=== PATIENT | male | born 1980 | race African-American/Black ===

== ENCOUNTER 2022-09-05 14:02 | Emergency (ER) | payer OTHER ==
[~2022-09-05] VITALS: Ht 170.2 cm; Wt 63.0 kg
[2022-09-05 16:27] VITALS: BP 115/82
[2022-09-05] MEDS ORDERED: METHOCARBAMOL500 MG PO (16:33)
[2022-09-05] MEDS ORDERED: NAPROXEN500 MG PO (16:33)
== END 2022-09-05 17:05 | disposition home or self-care (01) | DRG 103 ==
LOC: ED 14:02 → EDBD 14:02 → ED 16:43
DX: F07.81 Postconcussional syndrome (principal)